=== PATIENT | female | born 1955 | race Caucasian/White ===

== ENCOUNTER 2020-05-19 11:07 | Emergency (ER) | payer OTHER ==
[2020-05-19] MEDS ORDERED: BREO ELLIPTA 21 EACH IH (11:20)
[2020-05-19] MEDS ORDERED: CARDIZEM CD 18180 MG PO (11:21)
[2020-05-19] MEDS ORDERED: METHOTREXATE2.5 MG PO (11:21)
[2020-05-19] MEDS ORDERED: PROAIR HFA0.09 MG/AC IH (11:21)
[2020-05-19] MEDS ORDERED: PRILOSEC 20MG20 MG PO (11:21)
[2020-05-19] MEDS ORDERED: XELJANZ XR11 MG PO (11:21)
[2020-05-19] MEDS ORDERED: FOLIC ACID1 MG PO (11:21)
[2020-05-19] MEDS ORDERED: ESCITALOPRAM20 MG PO (11:22)
[2020-05-19 12:05] LABS: HEMOGLOBIN 12.2 g/dL (12.5-16.0); MEAN CELL VOLUME 95 fl (78-100); MEAN CORPUSCULAR HEMOGLOBIN 32 pg (27-31); MEAN CORPUSCULAR HGB CONC 34 g/dL (33-37); MEAN PLATELET VOLUME 9.8 fl (7.4-10.4); PLATELET COUNT 298 K/mm3 (130-400); WHITE BLOOD COUNT 8.7 K/mm3 (4.8-10.8)
[2020-05-19 12:14] LABS: ALBUMIN 3.6 g/dL (3.4-4.8); POTASSIUM 4.1 mmol/L (3.5-5.1)
[2020-05-19 12:15] LABS: CALCIUM 8.3 mg/dL (8.3-10.5)
[2020-05-19 12:16] LABS: TOTAL PROTEIN 6.6 g/dL (6.2-8.1)
[2020-05-19 12:18] LABS: TOTAL BILIRUBIN 0.4 mg/dL (0.2-1.2)
[2020-05-19 12:31] LABS: LYMPHOCYTE 9 % (20-51); MONOCYTE 10 % (3-10); NEUTROPHILS 81 % (42-75); TARGET CELLS 1+
[2020-05-19 14:28] LABS: URINE APPEARANCE CLEAR; URINE COLOR YELLOW
[2020-05-19 14:29] LABS: URINE BILIRUBIN NEGATIVE (NEGATIVE); URINE BLOOD 50 ery/uL (NEGATIVE); URINE GLUCOSE NEGATIVE (NEGATIVE); URINE KETONE NEGATIVE (NEGATIVE); URINE LEUKOCYTE ESTERASE TRACE (NEGATIVE); URINE NITRATE NEGATIVE (NEGATIVE); URINE PROTEIN(semi-quant) TRACE mg/dL (NEGATIVE); URINE UROBILINOGEN NORMAL (NORMAL)
[2020-05-19] MEDS ORDERED: ZOFRAN ODT4 MG PO (15:26)
[2020-05-19 15:45] VITALS: BP 119/76
== END 2020-05-19 15:35 | disposition home or self-care (01) ==
LOC: ED 11:07
PROVIDERS: Family Medicine
DX: B34.9 Viral infection, unspecified (principal); J45.909 Unspecified asthma, uncomplicated; M06.9 Rheumatoid arthritis, unspecified; Z20.822 Contact with and (suspected) exposure to COVID-19; Z88.0 Allergy status to penicillin; Z88.6 Allergy status to analgesic agent; Z79.51 Long term (current) use of inhaled steroids; Z79.899 Other long term (current) drug therapy
CPT/HCPCS: J2550; J7030